=== PATIENT | female | born 1990 | race Caucasian/White ===

== ENCOUNTER 2017-05-26 22:51 | Emergency (ER) | payer BC ==
[2017-05-26] MEDS ORDERED: Cefuroxime 250 MG Tab PO ONE (22:52)
[2017-05-26] MEDS: Lidocaine 1% 20 ML MDV INJECT ONE (23:26)
[2017-05-26] MEDS: cefTRIAXone 1 GM Vial IVPUSH SCH (23:26)
--- NOTE | 2017-05-26 23:26 | EDM.PDOC ---
ED HPI GENERAL MEDICAL PROBLEM - General Chief Complaint: ENT Problem Stated Complaint: L)EAR PAIN Time Seen by Provider: 05/26/17 23:13 Source of Information: Reports: Patient History Limitations: Reports: No Limitations - History of Present Illness INITIAL COMMENTS - FREE TEXT/NARRATIVE: Patient presents today with significant left ear pain since this morning. Symptoms have worsened over the day. She did try Motrin for the discomfort, which did not help all that much. Does have pain medications from her [facility] yet but has not taken any of them. States the pain radiates down her jaw and neck. She denies sinus congestion or drainage. No fevers. No sore throat. Has otherwise been doing well. 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 Left Ear Pain Score (Numeric/FACES): 7 - Related Data Allergies Allergy/AdvReac Type Severity Reaction Status Date / Time No Known Allergies Allergy Verified 05/26/17 22:57 Home Meds: Home Meds oxyCODONE HCl/Acetaminophen [oxyCODONE-Acetaminophen 5-325] 1 tab PO Q4H PRN [History] Past Medical History - Past Health History Medical/Surgical History: Denies Medical/Surgical History - Past Surgical History Female Surgical History: Reports: Section Social & Family History - Family History Family Medical History: Noncontributory - Tobacco Use Smoking Status *Q: Never Smoker - Caffeine Use Caffeine Use: Reports: Energy Drinks - Recreational Drug Use Recreational Drug Use: No ED ROS ENT - Review of Systems Review Of Systems: See Below Constitutional: Reports: Chills. Denies: Fever, Malaise, Weakness, Decreased Appetite HEENT: Reports: Ear Pain. Denies: Ear Discharge, Rhinitis, Sinus Problem, Throat Pain Respiratory: Denies: Shortness of Breath, Cough Cardiovascular: Denies: Chest Pain, Edema, Lightheadedness Endocrine: Denies: Fatigue GI/Abdominal: Denies: Abdominal Pain, Nausea, Vomiting ED EXAM, ENT - Physical Exam Exam: See Below Exam Limited By: No Limitations General Appearance: Alert, WD/WN, Mild Distress Ears: Normal External Exam, TM Erythema Nose: Normal Inspection, Normal Mucousa, No Blood Mouth/Throat: Normal Inspection, Normal Teeth, Other (TMJ crepitus noted. ) Head: Normocephalic Neck: Normal Inspection, Supple, Lymphadenopathy (L) Respiratory/Chest: No Respiratory Distress, Lungs Clear, Normal Breath Sounds Cardiovascular: Regular Rate, Rhythm Neurological: Alert, Oriented Psychiatric: Normal Affect, Normal Mood Skin: Warm, Dry Course - Vital Signs Last Recorded V/S: Last Vital Signs Temp 97.9 F 05/26/17 22:52 Pulse 68 05/26/17 22:52 Resp 20 05/26/17 22:52 BP 127/91 H 05/26/17 22:52 Pulse Ox 100 05/26/17 22:52 - Orders/Labs/Meds Orders: Active Orders 24 hr Category Date Time Status Cefuroxime [Take Home: Cefuroxime 250 MG, 2 Tab Pack] Med 05/26/17 23:20 Once 1 packet PO ONETIME ONE cefTRIAXone [Rocephin] Med 05/26/17 23:30 Ordered 1 gm IVPUSH Q24H Medication Orders Ceftriaxone Sodium (Rocephin) 1 gm IVPUSH Q24H ANSLEY Cefuroxime Axetil (Take Home: Cefuroxime 250 Mg, 2 Tab Pack) 1 packet PO ONETIME ONE Stop: 05/26/17 23:21 Meds: Medications Generic Name Dose Route Start Last Admin Trade Name Freq PRN Reason Stop Dose Admin Ceftriaxone Sodium 1 gm 05/26/17 23:30 Rocephin IVPUSH Q24H ANSLEY Cefuroxime Axetil 1 packet 05/26/17 23:20 Take Home: Cefuroxime 250 Mg, 2 Tab Pack PO 05/26/17 23:21 ONETIME ONE Discontinued Medications Generic Name Dose Route Start Last Admin Trade Name Freq PRN Reason Stop Dose Admin Lidocaine HCl 20 ml 05/26/17 23:18 Xylocaine 1% INJECT 05/26/17 23:19 ONETIME ONE Departure - Departure Time of Disposition: 23:25 Disposition: Home, Self-Care 01 Condition: Good Clinical Impression: Otitis media - Discharge Information Referrals: PCP,None [Primary Care Provider] - Additional Instructions: 1. Push fluids 2. Ceftin 250 mg twice a day for 10 days 3. Use your oxycodone for pain as needed 4. Heating pad to ear/neck 5. Follow up if any ongoing concerns. - My Orders Last 24 Hours: My Active Orders 05/26/17 23:20 Cefuroxime [Take Home: Cefuroxime 250 MG, 2 Tab Pack] 1 packet PO ONETIME ONE 05/26/17 23:30 cefTRIAXone [Rocephin] 1 gm IVPUSH Q24H - Assessment/Plan Last 24 Hours: My Active Orders 05/26/17 23:20 Cefuroxime [Take Home: Cefuroxime 250 MG, 2 Tab Pack] 1 packet PO ONETIME ONE 05/26/17 23:30 cefTRIAXone [Rocephin] 1 gm IVPUSH Q24H
[2017-05-26] MEDS: Take Home: Cefuroxime 250 MG Tab, 2 Tab Pack PO ONE (23:30)
== END 2017-05-26 23:36 | disposition home or self-care (01) ==
LOC: CC.ED 22:51
DX: H66.92 Otitis media, unspecified, left ear (principal)
CPT/HCPCS: 96372; 99282; J0696